=== PATIENT | female | born 1940 | race Caucasian/White ===

== ENCOUNTER 2018-07-31 14:38 | Emergency (ER) | payer OTHER ==
[2018-07-31 15:01] VITALS: BP 175/85; PULSE 94; TEMP 98.8; BMI 42.5
--- NOTE | 2018-07-31 15:25 | PDOC ---
History of Present Illness - General Stated Complaint: LT SIDE KIDNEY PAIN Time Seen by Provider: 07/31/18 15:15 History Source: Patient - History of Present Illness Initial Comments: 07/31/18 17:05 The patient is a 78 year old female with a PMH of HTN, HLD, NIDDM, Hypothyroidism and remote h/o nephrolithiasis who presents to the ED c/o 3 week h/o intermittent L sided flank pain. Pain is sharp, intermittent, 10/10 with no radiation. No identifiable triggering or relieving factors. No dysuria/ hematuria increased urgency/frequency. No vaginal spotting. Was evaluated by her welding machine operator resistance, Dr. Sarah Medina, this morning who instructed patient to come to the ED. Stated she started seeing a welding machine operator resistance earlier this year after incidental proteinuria and was started on Enalapril. The patient denies chest pain, abdominal pain, nausea/vomiting, diarrhea/ constipation, recent travel or sick contacts. NKDA Surgical: L knee replacement, Tubal ligation Social: denies toxic habits As per EMR, patient was last evaluated in our ED in 2012 for abdominal pain at which time U/S showed cholelithiasis. H/o abdominal CT in May 2018 with L sided hydronephrosis w/o stone and R sided non-obstructing stone. Past History - Past Medical History Allergies/Adverse Reactions: Allergies Allergy/AdvReac Type Severity Reaction Status Date / Time No Known Drug Allergies Allergy Verified 08/01/18 15:45 Home Medications: Ambulatory Orders Amlodipine Besylate [Norvasc -] 10 mg PO DAILY 10/27/12 Levothyroxine [Synthroid -] 100 mcg PO DAILY 10/27/12 Ibuprofen [Motrin -] 400 mg PO QID PRN 06/19/14 Rosuvastatin Calcium [Crestor] 20 mg PO DAILY 06/19/14 Enalapril Maleate [Vasotec -] 5 mg PO DAILY 07/31/18 Metformin HCl [Glucophage] 500 mg PO BID 07/31/18 Sulfamethoxazole/Trimethoprim [Bactrim Ds Tablet] 1 each PO BID 7 Days #14 tablet 07/31/18 HTN: Yes Hypercholesterolemia: Yes Thyroid Disease: Yes (HYPO) - Surgical History Orthopedic Surgery: Yes (left knee replacement) - Suicide/Smoking/Psychosocial Hx Smoking Status: No Smoking History: Never smoked Have you smoked in the past 12 months: No Number of Cigarettes Smoked Daily: 0 Information on smoking cessation initiated: No Hx Alcohol Use: No Drug/Substance Use Hx: No Substance Use Type: None Hx Substance Use Treatment: No Review of Systems - Review of Systems Constitutional: No: Chills, Fever HEENTM: No: Recent change in vision Respiratory: No: Cough, Shortness of Breath Cardiac (ROS): No: Chest Pain, Lightheadedness, Palpitations ABD/GI: No: Constipated, Diarrhea, Nausea, Vomiting : Yes: Flank Pain. No: Burning, Dysuria *Physical Exam - Vital Signs Last Vital Signs Temp Pulse Resp BP Pulse Ox 98.8 F 94 H 20 175/85 H 98 07/31/18 14:57 07/31/18 14:57 07/31/18 14:57 07/31/18 14:57 07/31/18 14:57 - Physical Exam General Appearance: Yes: Nourished, Appropriately Dressed HEENT: positive: Normal Voice, Hearing Grossly Normal Neck: positive: Trachea midline, Supple Respiratory/Chest: positive: Lungs Clear, Normal Breath Sounds Cardiovascular: positive: S1, S2, Edema (B/L LE edema (chronic)). negative: JVD , Murmur Vascular Pulses: Femoral (R): 2+, Femoral (L): 2+ Gastrointestinal/Abdominal: positive: Normal Bowel Sounds, Soft. negative: Guarding, Rebound, Tenderness, Hernia, Mass Musculoskeletal: negative: CVA Tenderness (R), CVA Tenderness (L) Extremity: positive: Normal Capillary Refill, Normal Inspection Integumentary: positive: Normal Color, Dry, Warm Moderate Sedation - Procedure Monitoring Vital Signs: Procedure Monitoring Vital Signs Temperature 98.8 F 07/31/18 14:57 Pulse Rate 94 H 07/31/18 14:57 Respiratory Rate 20 07/31/18 14:57 Blood Pressure 175/85 H 07/31/18 14:57 O2 Sat by Pulse Oximetry (%) 98 07/31/18 14:57 ED Treatment Course - LABORATORY CBC & Chemistry Diagram: 07/31/18 16:57 07/31/18 16:58 Medical Decision Making - Medical Decision Making 07/31/18 16:04 78 year old female with intermittent L sided flank pain. Hypertensive (175/85) other VS unremarkable. Frontal diagnosis: obstructing nephrolithiasis, cystitis , pyelonephritis, renal colic, less likely renal stricture, renal artery thrombosis. Will obtain basic labs, UA/Urine Cx, spiral CT. Reassess. Beside U/S shows L sided hydropnephrosis, finding c/w previous CT 07/31/18 22:[address] negative for nephrolithiasis UA shows 182 WBC - will treat for presumptive UTI and discharge home with return precautions, nephrology, urology (for persistent hydronephrosis) follow- ups and 7 day course of Bactrim. Patient reassessed @ bedside VSS Counseled on plan of care and discharged home. I discussed the physical exam findings, ancillary test results and final diagnoses with the patient. I answered all of the patient's questions. The patient was satisfied with the care received and felt comfortable with the discharge plan and treatment plan. The patient will return to the Emergency Department with any new, persistent or worsening symptoms. *DC/Admit/Observation/Transfer Diagnosis at time of Disposition: UTI (urinary tract infection) - Discharge Dispostion Disposition: HOME Condition at time of disposition: Good Decision to Admit order: No - Prescriptions Prescriptions: Sulfamethoxazole/Trimethoprim [Bactrim Ds Tablet] 1 each PO BID 7 Days #14 tablet - Referrals Referrals: Hua Rome MD., [Staff Physician] - - Patient Instructions Additional Instructions: A test of your urine showed findings suggestive of a urinary tract infection. We have called an antibiotic to your pharmacy, please take the entire prescribed course. Please also make a follow-up appointment with a urologist (referral provided or your can call your insurance company for a list of doctors) within 1 week and return to your welding machine operator resistance's office within the next 3 days. You can take Tylenol (up to 3200 mg daily) for your pain. Return to the Emergency Department for any new/worsening/concerning symptoms. - Post Discharge Activity
[2018-07-31] MEDS ORDERED: ACETAMINOPHEN 1000 MG/100 ML VIAL (NON FORMULARY) IVPB ONE (15:53)
[2018-07-31] MEDS ORDERED: SODIUM CHLORIDE 0.9% 500 ML INFUS.BAG IV ONE (15:53)
--- NOTE | 2018-07-31 16:10 | PDOC ---
Attending Attestation - HPI HPI: 07/31/18 16:14 78 y/o with a pmhx of HTN, HLD, Hypothyroidism, and NIDDM who presents to the emergency department for evaluation of a 3 week history of intermittent episodes of stabbing left sided flank pain. Patient reports right lower quadrant abdominal pain. She notes her pain is similar to a stone she had 20 years ago. She notes she saw Dr. Sarah Acevedo and was prompted to visit the ED for further evaluation. Abdominal CT done in 06/14/18 revealing possible stone in right mid kidney. Denies f/c, n/v, hematuria, and dysuria. - Medical Decision Making 07/31/18 16:14 Documentation prepared by Joanne Mejía, acting as medical surgical tech for Naty Vincent MD. <Joanne Mejía - Last Filed: 07/31/18 16:14> - Resident Resident Name: RobbieMia - ED Attending Attestation I have performed the following: I have examined & evaluated the patient, The case was reviewed & discussed with the resident, I agree w/resident's findings & plan, Exceptions are as noted - Physicial Exam PE: GENERAL: Awake, alert, and fully oriented, in no acute distress HEAD: No signs of trauma EYES: PERRLA, EOMI, sclera anicteric, conjunctiva clear ENT: Auricles normal inspection, hearing grossly normal, nares patent, oropharynx clear without exudates. Moist mucosa NECK: Normal ROM, supple, no lymphadenopathy, JVD, or masses LUNGS: Breath sounds equal, clear to auscultation bilaterally. No wheezes, and no crackles HEART: Regular rate and rhythm, normal S1 and S2, no murmurs, rubs or gallops ABDOMEN: Soft, nontender, normoactive bowel sounds. No guarding, no rebound. No masses. +L CVAT. EXTREMITIES: Normal range of motion, no edema. No clubbing or cyanosis. No cords, erythema, or tenderness NEUROLOGICAL: Cranial nerves II through XII grossly intact. Normal speech, normal gait. Motor and sensation intact SKIN: Warm, Dry, normal turgor, no rashes or lesions noted. - Medical Decision Making Will obtain UA and spiral CT r/o stone. <Naty Vincent - Last Filed: 08/05/18 07:20>
[2018-07-31] MEDS ORDERED: ACETAMINOPHEN INJECTION 100 ML IVPB ONE (16:48)
[2018-07-31 17:36] LABS: ALK PHOS 72 U/L (45-117); ANION GAP 5 MMOL/L (8-16); BILIRUBIN,TOTAL 0.6 mg/dL (0.2-1); BLOOD UREA NITROGEN 14 mg/dL (7-18); CALCIUM 9.2 mg/dL (8.5-10.1); CHLORIDE 105 mmol/L (98-107); CO2 29 mmol/L (21-32); CREATININE 0.5 mg/dL (0.55-1.3); GLUCOSE,RANDOM 111 mg/dL (74-106); POTASSIUM 3.9 mmol/L (3.5-5.1); SGOT/AST 15 U/L (15-37); SGPT/ALT 17 U/L (13-61); SODIUM 140 mmol/L (136-145); TOT PROT 7.7 g/dl (6.4-8.2)
[2018-07-31 19:05] LABS: URINE APPEARANCE CLOUDY; URINE BILIRUBIN NEGATIVE (<2.0 mg/dL); URINE COLOR YELLOW; URINE GLUCOSE (UA) NEGATIVE (NEGATIVE); URINE KETONE NEGATIVE (NEGATIVE); URINE LEUK ESTERASE 2+ (NEGATIVE); URINE NITRITE NEGATIVE (NEGATIVE); URINE PROTEIN 3+ (NEGATIVE); URINE UROBILINOGEN NEGATIVE mg/dL (0.2-1.0)
[2018-07-31 19:37] LABS: URINE BACTERIA FEW /hpf (NONE SEEN); URINE HYALINE CAST 5 /lpf; URINE MUCUS RARE
[2018-07-31 19:37] LABS: BASO % 1.1 % (0-2.0); EOS % 2.2 % (0-4.5); HEMATOCRIT 38.5 % (32.4-45.2); HEMOGLOBIN 12.8 GM/dL (10.7-15.3); LYMPH % 21.5 % (8-40); MCH 29.1 pg (25.7-33.7); MCHC 33.3 g/dl (32.0-36.0); MEAN CELL VOLUME 87.6 fl (80-96); MEAN PLT VOLUME 9.1 fl (7.5-11.1); MONO % 6.4 % (3.8-10.2); NEUT % 68.8 % (42.8-82.8); PLATELET COUNT 330 K/MM3 (134-434); RDW 15.2 % (11.6-15.6); WHITE BLOOD COUNT 6.8 K/mm3 (4.0-10.0)
== END 2018-07-31 20:45 | disposition home or self-care (01) ==
LOC: JER 14:38
PROC: 3E033NZ Introduction of Analgesics, Hypnotics, Sedatives into Peripheral Vein, Percutaneous Approach (ICD-10-PCS; principal; 2018-07-31)
DX: N39.0 Urinary tract infection, site not specified (principal); I10 Essential (primary) hypertension; E78.5 Hyperlipidemia, unspecified; E78.00 Pure hypercholesterolemia, unspecified; E11.9 Type 2 diabetes mellitus without complications; Z79.84 Long term (current) use of oral hypoglycemic drugs; E03.9 Hypothyroidism, unspecified; Z87.442 Personal history of urinary calculi; Z96.652 Presence of left artificial knee joint
CPT/HCPCS: 36415; 74176-TC; 80053; 81003; 81015; 85025; 87086; 87186; 96374; 99281-25; 99283-25; J0131

== ENCOUNTER 2018-08-01 15:22 | Emergency (ER) | payer OTHER ==
--- NOTE | 2018-08-01 15:42 | PDOC ---
Rapid Medical Evaluation Time Seen by Provider: 08/01/18 15:39 Medical Evaluation: Allergies Allergy/AdvReac Type Severity Reaction Status Date / Time No Known Drug Allergies Allergy Verified 07/02/14 07:02 08/01/18 15:41 I have performed a brief in-person evaluation of this patient. The patient presents with a chief complaint of: left flank pain Pertinent physical exam findings: Left CVAT. I have ordered the following: renal u/s The patient will proceed to the ED for further evaluation. Discharge Disposition - Diagnosis Flank pain - Referrals - Patient Instructions - Post Discharge Activity
[2018-08-01] MEDS ORDERED: LIDOCAINE 5% TOPICAL PATCH TP ONE (16:44)
[2018-08-01] MEDS ORDERED: traMADol HCL 50 MG TABLET PO ONE (16:46)
[2018-08-01] MEDS ORDERED: LIDOCAINE 5% TOPICAL PATCH ONE (16:51)
[2018-08-01] MEDS ORDERED: traMADol HCL 50 MG TABLET ONE (16:51)
--- NOTE | 2018-08-01 16:59 | PDOC ---
History of Present Illness - General Chief Complaint: Urinary Problem Stated Complaint: BACK PAIN Time Seen by Provider: 08/01/18 15:39 History Source: Patient, Family - History of Present Illness Occurred: reports: other Severity: reports: severe Pain Location: reports: back Past History - Past Medical History Allergies/Adverse Reactions: Allergies Allergy/AdvReac Type Severity Reaction Status Date / Time No Known Drug Allergies Allergy Verified 08/01/18 15:45 Home Medications: Ambulatory Orders Amlodipine Besylate [Norvasc -] 10 mg PO DAILY 10/27/12 Levothyroxine [Synthroid -] 100 mcg PO DAILY 10/27/12 Ibuprofen [Motrin -] 400 mg PO QID PRN 06/19/14 Rosuvastatin Calcium [Crestor] 20 mg PO DAILY 06/19/14 Enalapril Maleate [Vasotec -] 5 mg PO DAILY 07/31/18 Metformin HCl [Glucophage] 500 mg PO BID 07/31/18 Sulfamethoxazole/Trimethoprim [Bactrim Ds Tablet] 1 each PO BID 7 Days #14 tablet 07/31/18 COPD: No Diabetes: Yes HTN: Yes Hypercholesterolemia: Yes Kidney Stones: Yes Thyroid Disease: Yes (HYPO) - Surgical History Orthopedic Surgery: Yes (left knee replacement) - Suicide/Smoking/Psychosocial Hx Smoking Status: No Smoking History: Never smoked Have you smoked in the past 12 months: No Number of Cigarettes Smoked Daily: 0 Information on smoking cessation initiated: No Hx Alcohol Use: No Drug/Substance Use Hx: No Substance Use Type: None Hx Substance Use Treatment: No Review of Systems - Review of Systems Constitutional: No: Chills, Fever ABD/GI: No: Nausea, Vomiting, Abdominal cramping : No: Burning, Dysuria, Frequency, Hematuria Musculoskeletal: Yes: Back Pain Neurological: No: Numbness, Tingling, Weakness *Physical Exam - Vital Signs Last Vital Signs Temp Pulse Resp BP Pulse Ox 97.9 F 83 16 155/68 100 08/01/18 15:42 08/01/18 15:42 08/01/18 15:42 08/01/18 15:42 08/01/18 15:42 - Physical Exam General Appearance: Yes: Appropriately Dressed, Mild Distress HEENT: positive: Normal Voice Neck: positive: Supple Respiratory/Chest: negative: Respiratory Distress Gastrointestinal/Abdominal: positive: Normal Bowel Sounds, Soft. negative: Tender, Pulsatile Mass, Distended, Guarding, Rebound Musculoskeletal: positive: Vertebral Tenderness (to L lower back). negative: CVA Tenderness Extremity: positive: Normal Inspection Integumentary: positive: Dry, Warm Neurologic: positive: Fully Oriented, Alert, Normal Mood/Affect, Motor Strength 5/5 Moderate Sedation - Procedure Monitoring Vital Signs: Procedure Monitoring Vital Signs Temperature 97.9 F 08/01/18 15:42 Pulse Rate 83 08/01/18 15:42 Respiratory Rate 16 08/01/18 15:42 Blood Pressure 155/68 08/01/18 15:42 O2 Sat by Pulse Oximetry (%) 100 08/01/18 15:42 Medical Decision Making - Medical Decision Making 08/01/18 16:48 78-year-old female, history of HTN, HLD, NIDDM, hypothyroid, kidney stone, chronic proteinuria (f/u with ), endorses b/l sciatica, here w/ persistent L lower back pain radiating to LLE, sharp, constant, 9/10, worse w/ movement and weight bearing x 1 month. Taking extra strength tylenol w/ no relief per pt. States she was seen in ED yesterday for same and had CT done showing no renal stones but re-demonstrated mild L hydrouteronephrosis, similar to image 06/10. Also seen was new development of "mildly enlarged left common iliac artery station lymph nodes". Pt was started on bactrim for UTI (+LE/WBC on ua), ucx pending (no prior sensitivities on record here). Labs were normal otherwise. Denies abd pain, dysuria, nausea, vomiting, fever or chills. No lower extremity sensory changes, weakness, saddle anesthesia or bowel or bladder incontinence See exam Possible sciatica flare R/o for renal stone on CT yesterday, chronic mild L hydro seen Currently on bactrim for +le/wbc on ua, ucx sent, reports no UTI sxs, n/v No e/o cauda equina -pain control in ED and reassess 08/01/18 17:48 Pt continues to c/o L lower back pain. 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 Will continue to manage pain in ED 08/01/18 19:03 Pt signed out to PERLA Cervantes pending reassessment *DC/Admit/Observation/Transfer Diagnosis at time of Disposition: Low back pain Qualifiers: Chronicity: unspecified Back pain laterality: left Sciatica presence: with sciatica Sciatica laterality: sciatica of left side Qualified Code(s): M54.42 - Lumbago with sciatica, left side - Referrals Referrals: Eran Bonds MD [Primary Care Provider] - - Patient Instructions - Post Discharge Activity
[2018-08-01 17:14] VITALS: BMI 37.8
[2018-08-01] MEDS ORDERED: morphine CARPU-JECT 4 MG/1 ML DISP.SYRIN IVPUSH ONE (17:47)
[2018-08-01] MEDS ORDERED: morphine CARPU-JECT 4 MG/1 ML DISP.SYRIN IM ONE (17:51)
[2018-08-01] MEDS ORDERED: morphine SULFATE 4 MG/ML VIAL ONE (18:02)
[2018-08-01] MEDS ORDERED: METHOCARBAMOL 500 MG TABLET PO ONE (19:59)
--- NOTE | 2018-08-01 20:01 | PDOC ---
*Physical Exam - Vital Signs Last Vital Signs Temp Pulse Resp BP Pulse Ox 98.4 F 76 20 134/62 95 08/01/18 19:23 08/01/18 19:23 08/01/18 19:23 08/01/18 19:23 08/01/18 19:23 ED Treatment Course - Medications Given in the ED: ED Medications Discontinued Medications Generic Name Dose Route Start Last Admin Trade Name Freq PRN Reason Stop Dose Admin Lidocaine 1 patch 08/01/18 16:44 08/01/18 16:56 Lidoderm Patch - TP 08/01/18 16:45 1 patch ONCE ONE Administration Morphine Sulfate 4 mg 08/01/18 17:47 08/01/18 18:12 Morphine Injection - IVPUSH 08/01/18 17:48 Not Given ONCE ONE Morphine Sulfate 4 mg 08/01/18 17:51 08/01/18 18:10 Morphine Injection - IM 08/01/18 17:52 4 mg ONCE ONE Administration Tramadol HCl 50 mg 08/01/18 16:46 08/01/18 16:57 Ultram - PO 08/01/18 16:47 50 mg ONCE ONE Administration Medical Decision Making - Medical Decision Making Patient signed out to me by PERLA Bowman Patient endorses some improvement in pain after meds given Patient able to ambulate Patient requesting to go home Advised further f/u with her PCP Stable for dc 08/01/18 19:55 *DC/Admit/Observation/Transfer Diagnosis at time of Disposition: Low back pain Qualifiers: Chronicity: unspecified Back pain laterality: left Sciatica presence: with sciatica Sciatica laterality: sciatica of left side Qualified Code(s): M54.42 - Lumbago with sciatica, left side - Discharge Dispostion Disposition: HOME Condition at time of disposition: Stable Decision to Admit order: No - Prescriptions Prescriptions: Lidocaine 5% Patch [Lidoderm -] 1 patch TP DAILY #30 patch Methocarbamol [Robaxin -] 500 mg PO TID PRN #21 tablet PRN Reason: Muscle Spasms Sennosides [Senna] 15 mg PO DAILY PRN #14 tablet PRN Reason: Constipation Tramadol HCl 50 mg PO Q6H PRN #16 tablet MDD 4 PRN Reason: Pain - Referrals Referrals: Eran Bonds MD [Primary Care Provider] - 2 Days - Patient Instructions Printed Discharge Instructions: DI for Back Pain With Sciatica Additional Instructions: Thank you for choosing [facility]. It was a pleasure taking care of you. Your pain could likely be coming from sciatica. For severe pain, you may take Tramadol. This medication can make you constipated for which you may take over the counter Senna tablets as needed. This medication can also make you drowsy so please be cautious with driving or performing heavy physical work. You were also prescribed a muscle relaxer - Robaxin. This medication can make you drowsy Apply warm compresses Recommend physical therapy Recommend further follow-up with your primary care doctor Return to the Emergency Department if your symptoms worsen or persist, you have fever, shortness of breath, chest pain, severe abdominal pain, vomiting, dizziness, weakness of extremities (arms and/or legs), unable to walk, unable to control bowel or bladder movements or other concerning symptoms. - Post Discharge Activity
[2018-08-01 20:05] VITALS: BP 124/55; PULSE 83; TEMP 98.1
[2018-08-01] MEDS ORDERED: METHOCARBAMOL 500 MG TABLET ONE (20:08)
[2018-08-01] MEDS ORDERED: LIDOCAINE PATCH REMOVAL MC SCH (22:00)
== END 2018-08-01 20:20 | disposition home or self-care (01) ==
LOC: JER 15:22
PROC: 3E023NZ Introduction of Analgesics, Hypnotics, Sedatives into Muscle, Percutaneous Approach (ICD-10-PCS; principal; 2018-08-01)
DX: M54.42 Lumbago with sciatica, left side (principal); I10 Essential (primary) hypertension; E11.9 Type 2 diabetes mellitus without complications; Z79.84 Long term (current) use of oral hypoglycemic drugs; E03.9 Hypothyroidism, unspecified; E78.5 Hyperlipidemia, unspecified; R80.9 Proteinuria, unspecified; Z87.442 Personal history of urinary calculi
CPT/HCPCS: 96372; 99281-25

== ENCOUNTER 2020-10-03 04:54 | Day surgery (SDC) | payer OTHER ==
[2020-09-30 14:48] VITALS: BMI 34.3
[2020-10-03] MEDS ORDERED: LIDOCAINE HCL/PF 1% SDV 5ML VIAL ONE ×2 (16:05→16:07)
[2020-10-03] MEDS ORDERED: LIDOCAINE HCL 1% PRESERVATIVE FREE - 30ML VIAL IJ ONE (16:21)
[2020-10-03] MEDS ORDERED: IOHEXOL 180 MG/1 ML ML IJ ONE (16:21)
[2020-10-03] MEDS ORDERED: DEXAMETHASONE SOD PHOSPHATE 10 MG/1 ML VIAL IVPUSH ONE (16:21)
[2020-10-03 17:19] VITALS: BP 146/78; PULSE 82; TEMP 98
== END 2020-10-03 16:57 | disposition home or self-care (01) ==
LOC: JASU-SURG 04:54
PROVIDERS: ATTEND Pain Medicine Pain Medicine
PROC: 3E0R33Z Introduction of Anti-inflammatory into Spinal Canal, Percutaneous Approach (ICD-10-PCS; 2020-10-03)
PROC: B01BYZZ Fluoroscopy of Spinal Cord using Other Contrast (ICD-10-PCS; 2020-10-03)
PROC: 3E0R3BZ Introduction of Anesthetic Agent into Spinal Canal, Percutaneous Approach (ICD-10-PCS; principal; 2020-10-03 15:30)
DX: M54.16 Radiculopathy, lumbar region (principal)
CPT/HCPCS: 76000-TC-FY; J1100

== ENCOUNTER 2020-10-31 04:14 | Day surgery (SDC) | payer OTHER ==
[2020-10-30 09:21] VITALS: BMI 38.9
[2020-10-31] MEDS ORDERED: LIDOCAINE HCL/PF 1% SDV 5ML VIAL ONE (07:19)
[2020-10-31] MEDS ORDERED: BUPIVACAINE HCL/PF 0.75% 10 ML VIAL ONE (07:19)
[2020-10-31 08:11] VITALS: TEMP 98.3
[2020-10-31] MEDS ORDERED: LIDOCAINE HCL 1% PRESERVATIVE FREE - 30ML VIAL IJ ONE ×3 (09:16→09:35)
[2020-10-31] MEDS ORDERED: BUPIVACAINE HCL/PF 0.75% 10 ML VIAL NR ONE ×4 (09:17→09:37)
[2020-10-31] MEDS ORDERED: IOHEXOL 180 MG/1 ML ML IJ ONE ×4 (09:18→09:36)
[2020-10-31 10:00] VITALS: BP 162/86; PULSE 86
== END 2020-10-31 10:16 | disposition home or self-care (01) ==
LOC: JASU-SURG 04:14
PROVIDERS: ATTEND Pain Medicine Pain Medicine
PROC: BR16YZZ Fluoroscopy of Lumbar Facet Joint(s) using Other Contrast (ICD-10-PCS; 2020-10-31)
PROC: 3E0T3BZ Introduction of Anesthetic Agent into Peripheral Nerves and Plexi, Percutaneous Approach (ICD-10-PCS; principal; 2020-10-31 09:30)
DX: M47.816 Spondylosis without myelopathy or radiculopathy, lumbar region (principal)
CPT/HCPCS: 76000-TC-FY

== ENCOUNTER 2022-10-26 04:01 | Day surgery (SDC) | payer OTHER, MEDICARE ==
[2022-10-22 14:46] VITALS: BMI 34.3
[2022-10-26 09:17] VITALS: RESP 18
[2022-10-26] MEDS ORDERED: LIDOCAINE HCL 1%, 10 MG/ML (20ML VIAL) NR ONE (10:30)
[2022-10-26] MEDS ORDERED: IOHEXOL 180 MG/1 ML ML IJ ONE (10:31)
[2022-10-26] MEDS ORDERED: BUPIVACAINE HCL/PF 0.5% (5MG/ML) 10 ML VIAL IJ ONE (10:31)
[2022-10-26] MEDS ORDERED: TRIAMCINOLONE ACET 40MG/1ML VIAL IM ONE (10:32)
[2022-10-26 11:38] VITALS: TEMP 98.7
[2022-10-26 11:41] VITALS: BP 138/60; PULSE 78
[2022-10-26] MEDS ORDERED: ACETAMINOPHEN 500 MG TABLET (FP) PO PRN (12:30)
== END 2022-10-26 11:05 | disposition home or self-care (01) ==
LOC: JASU-SURG 04:01
PROVIDERS: ATTEND Pain Medicine Pain Medicine
PROC: 3E0U3BZ Introduction of Anesthetic Agent into Joints, Percutaneous Approach (ICD-10-PCS; 2022-10-26)
PROC: 3E0U33Z Introduction of Anti-inflammatory into Joints, Percutaneous Approach (ICD-10-PCS; principal; 2022-10-26 10:45)
DX: M53.3 Sacrococcygeal disorders, not elsewhere classified (principal)
CPT/HCPCS: 76000-TC-FY

== ENCOUNTER 2022-11-19 05:24 | Day surgery (SDC) | payer OTHER, MEDICARE ==
[2022-11-18 12:26] VITALS: BMI 34.3
[2022-11-19] MEDS ORDERED: BUPIVACAINE HCL/PF 0.75% 10 ML VIAL NR ONE ×3 (11:31→11:36)
[2022-11-19] MEDS ORDERED: LIDOCAINE 1% P/F 10 MG/ML VIAL INF ONE ×3 (11:31→11:36)
[2022-11-19 12:06] VITALS: RESP 20; TEMP 98.6
[2022-11-19 13:26] VITALS: BP 130/70; PULSE 88
[2022-11-19] MEDS ORDERED: ACETAMINOPHEN 500 MG TABLET (FP) PO PRN (16:30)
== END 2022-11-19 12:45 | disposition home or self-care (01) ==
LOC: JASU-SURG 05:24
PROVIDERS: ATTEND Pain Medicine Pain Medicine
PROC: 3E0T33Z Introduction of Anti-inflammatory into Peripheral Nerves and Plexi, Percutaneous Approach (ICD-10-PCS; 2022-11-19)
PROC: 3E0T3BZ Introduction of Anesthetic Agent into Peripheral Nerves and Plexi, Percutaneous Approach (ICD-10-PCS; principal; 2022-11-19 12:30)
DX: M47.816 Spondylosis without myelopathy or radiculopathy, lumbar region (principal)
CPT/HCPCS: 76000-TC-FY

== ENCOUNTER 2022-12-17 05:10 | Day surgery (SDC) | payer OTHER, MEDICARE ==
[2022-12-13 13:58] VITALS: BMI 34.3
[2022-12-17] MEDS ORDERED: DEXAMETHASONE SOD PHOSPHATE 10 MG/1 ML VIAL ONE (07:16)
[2022-12-17] MEDS ORDERED: LIDOCAINE HCL/PF 1% SDV 5ML VIAL ONE (07:16)
[2022-12-17] MEDS ORDERED: ACETAMINOPHEN 500 MG TABLET (FP) PO PRN (07:19)
[2022-12-17 07:28] VITALS: RESP 18
[2022-12-17 11:35] VITALS: BP 138/58; PULSE 78; TEMP 98.1
== END 2022-12-17 10:05 | disposition home or self-care (01) ==
LOC: JASU-SURG 05:10
PROVIDERS: ATTEND Pain Medicine Pain Medicine
PROC: 3E0R3BZ Introduction of Anesthetic Agent into Spinal Canal, Percutaneous Approach (ICD-10-PCS; 2022-12-17)
PROC: 3E0R33Z Introduction of Anti-inflammatory into Spinal Canal, Percutaneous Approach (ICD-10-PCS; principal; 2022-12-17 09:15)
DX: M54.16 Radiculopathy, lumbar region (principal); M48.061 Spinal stenosis, lumbar region without neurogenic claudication
CPT/HCPCS: 76000-TC-FY; J1100

== ENCOUNTER 2023-07-05 01:08 | Inpatient (IN) | payer OTHER, MEDICARE ==
[2023-07-05 01:29] VITALS: BMI 36.0
[2023-07-05 02:33] LABS: EPI CELLS 5 /uL (0-25.1); HYALINE CASTS 1 /uL (0-3.1); URINE APPEARANCE CLOUDY; URINE BACTERIA >9,000 /uL (0-1359); URINE BILIRUBIN NEGATIVE (NEGATIVE); URINE COLOR YELLOW; URINE GLUCOSE (UA) NEGATIVE (NEGATIVE); URINE KETONE NEGATIVE (NEGATIVE); URINE LEUK ESTERASE 2+ (NEGATIVE); URINE NITRITE NEGATIVE (NEGATIVE); URINE PROTEIN 2+ (NEGATIVE); URINE RBC 614 /uL (0-23.9); URINE UROBILINOGEN 0.2 mg/dL (0.2-1.0); URINE WBC 1018 /uL (0-25.8)
[2023-07-05] MEDS ORDERED: CEFTRIAXONE 1 GM/50 ML BAG ONE (02:40)
[2023-07-05 02:41] LABS: INR 1.09 (0.83-1.09); PROTHROMBIN TIME (PATIENT) 12.6 SEC (9.7-13.0)
[2023-07-05 02:43] LABS: ACTIVATED PTT 26.3 SECONDS (25.2-36.5)
[2023-07-05] MEDS: CEFTRIAXONE 1,000 MG in DEXTROSE 5%-WATER - 50 ML IVPB ONE (02:46)
[2023-07-05 02:59] LABS: CHLORIDE 109 mmol/L (98-107); POTASSIUM 4.2 mmol/L (3.5-5.1); SODIUM 141 mmol/L (136-145)
[2023-07-05 03:00] LABS: HEMATOCRIT 37.4 % (32.4-45.2); HEMOGLOBIN 12.2 GM/dL (10.7-15.3); MCH 27.5 pg (25.7-33.7); MCHC 32.6 g/dl (32.0-36.0); MEAN CELL VOLUME 84.4 fl (80-96); PLATELET COUNT 255 10^3/uL (134-434); RBC 4.43 M/mm3 (3.60-5.2); RDW 16.4 % (11.6-15.6); WHITE BLOOD COUNT 17.3 K/mm3 (4.0-10.0)
[2023-07-05 03:01] LABS: CALCIUM 9.8 mg/dL (8.5-10.1)
[2023-07-05 03:02] LABS: ALBUMIN 3.5 g/dl (3.4-5.0); ANION GAP 8 mmol/L (4-13); BLOOD UREA NITROGEN 29.3 mg/dL (7-18); CO2 24 mmol/L (21-32); GLUCOSE,RANDOM 206 mg/dL (74-106)
[2023-07-05 03:05] LABS: SGOT/AST 51 U/L (15-37); SGPT/ALT 41 U/L (13-61)
[2023-07-05 03:08] LABS: ALK PHOS 111 U/L (45-117)
[2023-07-05 03:42] LABS: ANISOCYTOSIS 0; MACROCYTOSIS 0; OVALOCYTE 1+
[2023-07-05] MEDS: SODIUM CHLORIDE 1,000 ML IV SCH (06:46)
[2023-07-05 07:04] LABS: HEMATOCRIT 35.9 % (32.4-45.2); HEMOGLOBIN 11.4 GM/dL (10.7-15.3); MCHC 31.8 g/dl (32.0-36.0); MEAN PLT VOLUME 8.8 fl (7.5-11.1); PLATELET COUNT 230 10^3/uL (134-434); RBC 4.22 M/mm3 (3.60-5.2); RDW 15.7 % (11.6-15.6)
[2023-07-05 08:03] LABS: POTASSIUM 4.1 mmol/L (3.5-5.1)
[2023-07-05 08:08] LABS: CALCIUM 9.6 mg/dL (8.5-10.1)
[2023-07-05 08:09] LABS: ALBUMIN 3.4 g/dl (3.4-5.0); BLOOD UREA NITROGEN 29.2 mg/dL (7-18); MAGNESIUM 1.9 mg/dL (1.8-2.4)
[2023-07-05 08:12] LABS: PHOSPHOROUS 2.7 mg/dL (2.5-4.9); TOT PROT 6.5 g/dl (6.4-8.2)
[2023-07-05 08:13] LABS: BILIRUBIN,TOTAL 0.8 mg/dL (0.2-1)
[2023-07-05] MEDS: LEVOTHYROXINE NA 100 MCG TABLET (FP) PO SCH (08:36)
[2023-07-05] MEDS: INSULIN ASPART SLIDING SCALE (NOVOLOG) 1 VIAL SQ SCH (08:36)
[2023-07-05 10:28] LABS: ANISOCYTOSIS 1+; MACROCYTOSIS 0
[2023-07-05] MEDS ORDERED: LEVOTHYROXINE NA 100 MCG TABLET (FP) ONE (10:31)
[2023-07-05] MEDS ORDERED: ENOXAPARIN NA (PORCINE) 40 MG/0.4 ML DISP.SYRIN SQ ONE (10:32)
[2023-07-05] MEDS: ENOXAPARIN NA (PORCINE) 40 MG/0.4 ML DISP.SYRIN SQ SCH (11:31)
[2023-07-05] MEDS: PIPERACILLIN/TAZOB 3.375 GM 3.375 GM in DEXTROSE 5%-WATER - 50 ML IVPB SCH (14:46)
[2023-07-05] MEDS ORDERED: INSULIN (NOVOLOG) ASPART 100 UNITS/ML 10ML VIAL ONE (16:35)
[2023-07-05] MEDS: ROSUVASTATIN CA 20 MG TABLET PO SCH (22:09)
[2023-07-06] MEDS ORDERED: CEFTRIAXONE 1 GM in DEXTROSE 5%-WATER - 50 ML IVPB SCH (06:00)
[2023-07-06 07:20] LABS: HEMATOCRIT 33.2 % (32.4-45.2); HEMOGLOBIN 11.3 GM/dL (10.7-15.3); MCH 28.3 pg (25.7-33.7); MCHC 33.9 g/dl (32.0-36.0); MEAN CELL VOLUME 83.6 fl (80-96); MEAN PLT VOLUME 8.9 fl (7.5-11.1); PLATELET COUNT 199 10^3/uL (134-434); RBC 3.97 M/mm3 (3.60-5.2); RDW 16.1 % (11.6-15.6); WHITE BLOOD COUNT 10.9 K/mm3 (4.0-10.0)
[2023-07-06 07:36] LABS: POTASSIUM 3.7 mmol/L (3.5-5.1)
[2023-07-06 07:40] LABS: BLOOD UREA NITROGEN 17.5 mg/dL (7-18)
[2023-07-06 07:43] LABS: CREATININE 0.6 mg/dL (0.55-1.3)
[2023-07-06 07:44] LABS: BILIRUBIN,TOTAL 0.8 mg/dL (0.2-1)
[2023-07-06 07:45] LABS: TOT PROT 6.3 g/dl (6.4-8.2)
[2023-07-06] MEDS: amLODIPine BESYLATE 5 MG TABLET (FP) PO SCH (09:31)
[2023-07-06] MEDS: ENALAPRIL MALEATE 5 MG TABLET PO SCH (09:31)
[2023-07-06] MEDS ORDERED: INSULIN (NOVOLOG) ASPART 100 UNITS/ML 10ML VIAL ONE (11:17)
[2023-07-07 07:25] LABS: HEMATOCRIT 34.2 % (32.4-45.2); HEMOGLOBIN 11.2 GM/dL (10.7-15.3); MCH 27.7 pg (25.7-33.7); MCHC 32.8 g/dl (32.0-36.0); MEAN CELL VOLUME 84.4 fl (80-96); MEAN PLT VOLUME 8.8 fl (7.5-11.1); PLATELET COUNT 219 10^3/uL (134-434); RBC 4.05 M/mm3 (3.60-5.2); RDW 15.7 % (11.6-15.6); WHITE BLOOD COUNT 7.9 K/mm3 (4.0-10.0)
[2023-07-07 07:41] LABS: BLOOD UREA NITROGEN 14.9 mg/dL (7-18); CALCIUM 9.2 mg/dL (8.5-10.1)
[2023-07-07 07:45] LABS: CREATININE 0.6 mg/dL (0.55-1.3)
[2023-07-08 07:16] LABS: HEMATOCRIT 35.5 % (32.4-45.2); HEMOGLOBIN 11.6 GM/dL (10.7-15.3); MCH 27.5 pg (25.7-33.7); MCHC 32.6 g/dl (32.0-36.0); MEAN CELL VOLUME 84.3 fl (80-96); MEAN PLT VOLUME 8.7 fl (7.5-11.1); PLATELET COUNT 257 10^3/uL (134-434); RBC 4.21 M/mm3 (3.60-5.2); RDW 15.9 % (11.6-15.6); WHITE BLOOD COUNT 7.4 K/mm3 (4.0-10.0)
[2023-07-08 07:34] LABS: POTASSIUM 3.9 mmol/L (3.5-5.1)
[2023-07-08 07:37] LABS: CALCIUM 9.7 mg/dL (8.5-10.1)
[2023-07-08 07:38] LABS: ALBUMIN 3.2 g/dl (3.4-5.0); BLOOD UREA NITROGEN 14.8 mg/dL (7-18)
[2023-07-08 07:41] LABS: CREATININE 0.6 mg/dL (0.55-1.3)
[2023-07-08 07:42] LABS: BILIRUBIN,TOTAL 0.7 mg/dL (0.2-1)
[2023-07-08 07:43] LABS: TOT PROT 7.1 g/dl (6.4-8.2)
[2023-07-08 08:40] VITALS: BP 147/62; PULSE 80; RESP 18; TEMP 98.2
== END 2023-07-08 11:25 | disposition home or self-care (01) | DRG 690 ==
LOC: JER 01:08 → JERBED 01:51 → OBSVTOIN 09:32 → J4W 11:11
PROVIDERS: ADMIT Internal Medicine; ATTEND Internal Medicine
DX: N10 Acute pyelonephritis (principal); I24.89 Other forms of acute ischemic heart disease; I35.0 Nonrheumatic aortic (valve) stenosis; I10 Essential (primary) hypertension; E78.5 Hyperlipidemia, unspecified; E03.9 Hypothyroidism, unspecified; E11.9 Type 2 diabetes mellitus without complications; R80.9 Proteinuria, unspecified; R00.0 Tachycardia, unspecified; M81.0 Age-related osteoporosis without current pathological fracture; M54.16 Radiculopathy, lumbar region; Z96.651 Presence of right artificial knee joint; G89.4 Chronic pain syndrome; E66.9 Obesity, unspecified; Z68.36 Body mass index [BMI] 36.0-36.9, adult; Z86.73 Personal history of transient ischemic attack (TIA), and cerebral infarction without residual deficits
CPT/HCPCS: 0241U-QW; 36415; 71045-TC-FY; 80048; 80053; 81003; 82550; 82962; 83036; 83735; 83880; 84100; 84443; 84484; 85025; 85027; 85610; 85730; 87040; 87086; 93005; 93010; 93306-TC; 97116-GP; 97161-GP; 99285-25; G0378